=== PATIENT | female | born 2000 | race Caucasian/White ===

== ENCOUNTER 2025-06-07 12:01 | Outpatient (CLI) | payer MEDICAID, SELFPAY ==
--- NOTE | 2025-06-07 12:15 | CRLHL7_ITS ---
For Patients: As a result of the Cures Act, medical imaging exams and procedure reports are released immediately into your electronic medical record. You may view this report before your referring provider. If you have questions, please contact your health care provider. OB ULTRASOUND FOLLOW-UP/LIMITED, 06/07/2025 CLINICAL HISTORY: Dating and viability. COMPARISON: None. TECHNIQUE: Real time arndt scale imaging of the fetus was performed. Transabdominal imaging performed. FINDINGS: LMP: 02/23/2025. LENY by LMP: 11/30/2025. GA: 14 weeks 6 days. Positioning: Multiple. Placenta: Technique: TA. Placenta Position: Posterior. Dopplers: Heart Rate: 149 bpm. BIOMETRY BPD: 3.1 cm, 15 weeks 4 days. 79% HC: 10.7 cm, 15 weeks 1 day. 43% AC: 9.2 cm, 15 weeks 3 days. 73% FL: 1.7 cm, 14 weeks 6 days. 47% FL/AC Ratio: 17.97% HC/AC Ratio: 1.16. EFW: 117 grams, 0 lb 4 oz. Age by this US: 15 weeks 2 days. LENY by this US: 11/27/2025. Percentile by LENY: 59% IMPRESSION: Single living intrauterine measures 15 weeks 2 days with sonographic due date 11/27/2025. Hany Oconnell M.D. Diagnostic Radiologist [email or web address] Transcribed: 1:50 pm DW/Dictated by: Hany Oconnell MD @ 06/07/2025 12:58:00 PM (Electronically Signed)
== END 2025-06-07 12:02 | disposition home or self-care (01) ==
LOC: US 12:02
PROVIDERS: Visit Provider Registered Nurse
DX: Z34.92 Encounter for supervision of normal pregnancy, unspecified, second trimester (principal); Z3A.15 15 weeks gestation of pregnancy
CPT/HCPCS: 76801; 76815

== ENCOUNTER 2025-06-07 13:17 | Outpatient (CLI) | payer MEDICAID, SELFPAY ==
[2025-06-07 19:16] LABS: Chlamydia DNA Amplified* NOT DETECTED (No Detected); GC DNA Amplified* NOT DETECTED (No Detected)
[2025-06-13 09:27] LABS: Pap Test Digital Imaging Done
== END 2025-06-07 13:18 | disposition home or self-care (01) ==
PROVIDERS: Visit Provider Registered Nurse
DX: Z34.02 Encounter for supervision of normal first pregnancy, second trimester (principal); Z67.40 Type O blood, Rh positive
CPT/HCPCS: 76815; 83020; 83021; 84443; 85660; 86592; 86703; 86704; 86706; 86762; 86787; 86803; 86850; 86900; 86901; 87086; 87340; 87491; 87591; 87624; 87625; 88141; 88142; 88175

== ENCOUNTER 2025-07-12 13:12 | Outpatient (CLI) | payer OTHER, SELFPAY | END 2025-07-12 13:13 | disposition home or self-care (01) | LOC: NFLDREF 13:13 | PROVIDERS: Visit Provider Registered Nurse | DX: R35.0 Frequency of micturition (principal) | CPT/HCPCS: 87086 ==

== ENCOUNTER 2025-07-12 13:15 | Outpatient (CLI) | payer OTHER, SELFPAY ==
--- NOTE | 2025-07-12 14:30 | CRLHL7_ITS ---
For Patients: As a result of the Century Cures Act, medical imaging exams and procedure reports are released immediately into your electronic medical record. You may view this report before your referring provider. If you have questions, please contact your health care provider. LMP: 02/23/2025. LENY by LMP: 11/30/2025. GA: 19w, 6d. INDICATION: survey. CERVIX: Visualized. Measurement: 3.6 cm. POSITIONING: Breech. AMNIOTIC FLUID: 4.8 cm SDP. PLACENTA: Technique: Transvaginal. PLACENTA POSITION: Posterior. Placenta tip to internal os: 6.6 cm. UMBILICAL CORD: 3 vessel. PLACENTAL INSERTION: Central. Biometry: BPD: 4.4 cm. 19w, 2d, 25.9 percent. HC: 16.4 cm. 19w, 1d, 13.5 percent. AC: 15.5 cm. 20w, 5d, 71.6 percent. FL: 3.2 cm. 19w, 6d, 42.3 percent. FL/AC ratio: 20.5 percent. HC/AC ratio: 1.1. HEART RATE: 149 bpm. EFW: 335.1 g. Weight: 0 lbs, 12 oz. age by this US: 19w, 5d. LENY by this US: 12/01/2025. Percentile by LENY: 62.5 percent. IMPRESSION: 1. Concordance of clinical and sonographic dating. 2. Incomplete visualization of the heart, sacrum and abdominal cord insertion. Remainder of the anatomic survey is normal. Short-term follow-up recommended. Hany Oconnell M.D. Diagnostic Radiologist [email or web address] bM/Dictated by: Hany Oconnell MD @ 07/12/2025 4:13:00 PM (Electronically Signed)
== END 2025-07-12 13:16 | disposition home or self-care (01) ==
LOC: US 13:16
PROVIDERS: Visit Provider Physician Assistant
DX: Z34.91 Encounter for supervision of normal pregnancy, unspecified, first trimester (principal); Z3A.19 19 weeks gestation of pregnancy; R35.0 Frequency of micturition
CPT/HCPCS: 76805; 76817; 87086

== ENCOUNTER 2025-07-25 07:57 | Outpatient (CLI) | payer OTHER, SELFPAY ==
--- NOTE | 2025-07-25 08:15 | CRLHL7_ITS ---
For Patients: As a result of the Cures Act, medical imaging exams and procedure reports are released immediately into your electronic medical record. You may view this report before your referring provider. If you have questions, please contact your health care provider. OB ULTRASOUND INDICATION: Follow-up missing anatomy views. LMP: 02/23/2025. LENY by LMP: 11/30/2025. GA: 21 w, 5 d. Single. COMPARISON: FAS 07/12/2025. TECHNIQUE: Real time arndt scale imaging of the fetus was performed. Transabdominal imaging performed. CERVIX: Visualized. TA. POSITIONING: Breech. AMNIOTIC FLUID: 4.1 cm. SDP (N: greater than 2 x 1 cm). PLACENTA: Technique: Transabdominal. PLACENTA POSITION: Posterior. DOPPLER: heart rate: 139 bpm. IMPRESSION: Single live intrauterine gestation. The sacrum, abdominal cord insertion, three-vessel heart view, four-chamber heart are visualized and within normal limits. Carla Myers M.D. Diagnostic/Breast Radiologist [email or web address] [place]/Dictated by: Carla Myers MD @ 07/28/2025 1:49:00 PM (Electronically Signed)
== END 2025-07-25 07:58 | disposition home or self-care (01) ==
LOC: US 07:58
PROVIDERS: Visit Provider Registered Nurse
DX: Z34.92 Encounter for supervision of normal pregnancy, unspecified, second trimester (principal); Z3A.21 21 weeks gestation of pregnancy
CPT/HCPCS: 76816

== ENCOUNTER 2025-08-14 12:03 | Outpatient (CLI) | payer OTHER, SELFPAY | END 2025-08-14 12:04 | disposition home or self-care (01) | LOC: US 12:04 | PROVIDERS: Visit Provider Obstetrics & Gynecology | DX: O28.3 Abnormal ultrasonic finding on antenatal screening of mother (principal); Z3A.24 24 weeks gestation of pregnancy | CPT/HCPCS: 76811 ==

== ENCOUNTER 2025-09-06 09:58 | Outpatient (CLI) | payer OTHER, SELFPAY | END 2025-09-06 09:59 | disposition home or self-care (01) | LOC: NFLDREF 09:58 | PROVIDERS: Visit Provider Obstetrics & Gynecology | DX: Z34.93 Encounter for supervision of normal pregnancy, unspecified, third trimester (principal); R35.0 Frequency of micturition | CPT/HCPCS: 86592; 87086 ==